=== PATIENT | female | born 1990 | race African-American/Black ===

== ENCOUNTER 2017-01-10 16:30 | Emergency (ER) | payer OTHER ==
[2017-01-10 16:36] VITALS: BP 124/58; PULSE 100; TEMP 98; BMI 20.9
--- NOTE | 2017-01-10 17:34 | PDOC ---
History of Present Illness - General Chief Complaint: Pain Stated Complaint: PAIN Time Seen by Provider: 01/10/17 16:47 - History of Present Illness Initial Comments: 01/10/17 17:43 Ms. Forrest is a 26 year old female with a significant past medical history of prior GERD diagnosis who presents to the emergency department with a one week history of "migrating pains" in her sternum, left kidney area, and stomach. She says that pain is 10/10 when it comes and is crampy. She denies any relation to food, but says that she has not had an appetite lately and has lost 10 pounds. She has not had a bowel movement in 2 days either. The patient denies chest pain, shortness of breath, headache and dizziness. Denies fever, chills, nausea, vomit, and diarrhea. Denies dysuria, frequency, urgency and hematuria. Allergies: Cats, dust Past surgical history:None Social history: Social EtOH PMD - Peggy Lorenzo Past History - Past Medical History Allergies/Adverse Reactions: Allergies Allergy/AdvReac Type Severity Reaction Status Date / Time No Known Allergies Allergy Verified 01/10/17 16:36 Home Medications: Ambulatory Orders NK [No Known Home Medication] 01/10/17 - Psycho/Social/Smoking Cessation Hx Anxiety: No Suicidal Ideation: No Smoking Status: No Smoking History: Never smoked Number of Cigarettes Smoked Daily: 0 Information on smoking cessation initiated: No Review of Systems - Review of Systems Comments:: 01/10/17 17:45 GENERAL/CONSTITUTIONAL: No fever or chills. No weakness. HEAD, EYES, EARS, NOSE AND THROAT: No change in vision. No ear pain or discharge. No sore throat. CARDIOVASCULAR: +Pain to sternum in the past week. No shortness of breath RESPIRATORY: No cough, wheezing, or hemoptysis. GASTROINTESTINAL: +Pain to abdomen in past week. No nausea, vomiting, or diarrhea. GENITOURINARY: +Pain in area of L/R kidney in past week. No dysuria, frequency, or change in urination. MUSCULOSKELETAL: No joint or muscle swelling or pain. No neck or back pain. SKIN: No rash NEUROLOGIC: No headache, vertigo, loss of consciousness, or change in strength/ sensation. ENDOCRINE: +Recent 10 pound weight loss from lack of eating. No increased thirst. HEMATOLOGIC/LYMPHATIC: No anemia, easy bleeding, or history of blood clots. ALLERGIC/IMMUNOLOGIC: No hives or skin allergy. *Physical Exam - Vital Signs Last Vital Signs Temp Pulse Resp BP Pulse Ox 98 F 100 H 18 124/58 99 01/10/17 16:32 01/10/17 16:32 01/10/17 16:32 01/10/17 16:32 01/10/17 16:32 - Physical Exam Comments: 01/10/17 17:45 GENERAL: Awake, alert, and fully oriented, in no acute distress HEAD: No signs of trauma, normocephalic, atraumatic EYES: PERRLA, EOMI, sclera anicteric, conjunctiva clear ENT: Auricles normal inspection, hearing grossly normal, nares patent, oropharynx clear without exudates. Moist mucosa NECK: Normal ROM, supple, no lymphadenopathy, JVD, or masses LUNGS: No distress, speaks full sentences, clear to auscultation bilaterally HEART: Regular rate and rhythm, normal S1 and S2, no murmurs, rubs or gallops, peripheral pulses normal and equal bilaterally. ABDOMEN: Soft, nontender, normoactive bowel sounds. No guarding, no rebound. No masses EXTREMITIES: Normal inspection, Normal range of motion, no edema. No clubbing or cyanosis. NEUROLOGICAL: Cranial nerves II through XII grossly intact. Normal speech, normal gait, no focal sensorimotor deficits SKIN: Warm, Dry, normal turgor, no rashes or lesions noted. ED Treatment Course - LABORATORY CBC & Chemistry Diagram: 01/10/17 18:21 01/10/17 18:21 Medical Decision Making - Medical Decision Making 01/10/17 20:28 Ms. Forrest presents with non-specific pain that shows up in different locations at different times. Upreg and UA negative, CBC/CMP labs grossly normal. US showed possible calculi in R kidney, spiral CT ordered to confirm. Spiral CT showed no evidence of any pathology. Transvaginal US ordered to r/o ovarian cyst/torsion. 01/10/17 21:50 Transvaginal US negative accept for minimal free fluid. D/Cing to home for further investigating outpatient. *DC/Admit/Observation/Transfer Diagnosis at time of Disposition: Pain - Discharge Dispostion Disposition: HOME Condition at time of disposition: Stable - Referrals Referrals: Peggy Lorenzo MD [Primary Care Provider] - - Patient Instructions Printed Discharge Instructions: DI for Ovarian Cyst Additional Instructions: Please return if any increase in pain, fever, or other concerning symptoms. - Attestations Physician Attestion: 01/10/17 21:54 I, Dr. Chapo Medeiros, attest that this document has been prepared under my direction and personally reviewed by me in its entirety. I further attest, that it accurately reflects all work, treatment, procedures and medical decision -making performed by me.
[2017-01-10 19:13] LABS: BASOPHIL 1.2 % (0-2.0); EOSINOPHIL 7.3 % (0-4.5); MCH 28.5 pg (25.7-33.7); MCHC 32.4 g/dl (32.0-36.0); MEAN CELL VOLUME 87.9 fl (80-96); MEAN PLT VOLUME 9.9 fl (7.5-11.1); NEUTROPHILS 55.3 % (42.8-82.8); PLATELET COUNT 294 K/MM3 (134-434); RDW 15.8 % (11.6-15.6); WHITE BLOOD COUNT 8.7 K/mm3 (4.0-10.0)
[2017-01-10 19:15] LABS: URINE APPEARANCE CLEAR; URINE BILIRUBIN NEGATIVE (NEGATIVE); URINE BLOOD NEGATIVE (NEGATIVE); URINE COLOR STRAW; URINE GLUCOSE (UA) NEGATIVE (NEGATIVE); URINE KETONE NEGATIVE (NEGATIVE); URINE LEUK ESTERASE NEGATIVE (NEGATIVE); URINE NITRITE NEGATIVE (NEGATIVE); URINE PROTEIN NEGATIVE (NEGATIVE); URINE UROBILINOGEN NEGATIVE mg/dL (0.2-1.0)
[2017-01-10] MEDS ORDERED: ACETAMINOPHEN 325 MG TABLET (FP) PO ONE (19:22)
[2017-01-10] MEDS ORDERED: ACETAMINOPHEN 325 MG TABLET (FP) ONE (19:35)
[2017-01-10 19:50] LABS: ALBUMIN 3.9 g/dl (3.4-5.0); ANION GAP 5 (8-16); BILIRUBIN,TOTAL 0.4 mg/dL (0.2-1.0); CALCIUM 9.4 mg/dL (8.5-10.1); CO2 29 mmol/L (21-32); CREATININE 0.8 mg/dL (0.55-1.02); GLUCOSE,RANDOM 84 mg/dL (74-106); SGOT/AST 7 U/L (15-37); SGPT/ALT 13 U/L (12-78); TOT PROT 7.2 g/dl (6.4-8.2)
[2017-01-10 19:51] LABS: ALK PHOS 55 U/L (45-117)
[2017-01-10] MEDS ORDERED: KETOROLAC TROMETHAMINE 15 MG/ML VIAL IM ONE (21:10)
[2017-01-10] MEDS ORDERED: KETOROLAC TROMETHAMINE 15 MG/ML VIAL ONE (21:13)
== END 2017-01-10 22:10 | disposition home or self-care (01) ==
LOC: JER 16:30
PROC: 3E0233Z Introduction of Anti-inflammatory into Muscle, Percutaneous Approach (ICD-10-PCS; principal; 2017-01-10)
DX: R10.9 Unspecified abdominal pain (principal); K21.9 Gastro-esophageal reflux disease without esophagitis
CPT/HCPCS: 36415; 74176; 76830-TC; 80053; 81003; 84703; 85025; 96372; 99283-25

== ENCOUNTER 2019-02-07 11:27 | Inpatient (IN) | payer OTHER ==
[2019-02-07] MEDS ORDERED: BUTORPHANOL TARTRATE 1 MG/ML VIAL IVPB ONE (11:51)
[2019-02-07] MEDS ORDERED: PROMETHAZINE HCL 25 MG/1 ML VIAL IVPUSH ONE (11:51)
--- NOTE | 2019-02-07 12:01 | HP ---
Past Medical History - Admission Chief Complaint: here for labor induction History of Present Illness: 28 y/o P0 female with SIUP at 41 weeks, here for IOL. uncomplicated. GBS positive, quad screen negative. EFW 6lb on 01/12/19. Cervix 2-3 cm dilated in office, sent over for pitocin induction. History Source: Patient, Medical Record Limitations to Obtaining History: No Limitations - Past Medical History Cardiovascular: No: HTN Pulmonary: No: COPD Hepatobiliary: No: Hepatitis B, Hepatitis C Renal/: No: UTI Reproductive: No: Fibroids, PID Heme/Onc: No: Anemia Infectious Disease: No: HIV, MRSA, STD's Psych: No: Anxiety, Bipolar, Depression - Past Surgical History Hx Myomectomy: No Hx Transabdominal Cerclage: No - Smoking History Smoking history: Never smoked Aproximately how many cigarettes per day: 0 - Social History ADL: Independent History of Recent Travel: No Home Medications - Allergies Allergies/Adverse Reactions: Allergies Allergy/AdvReac Type Severity Reaction Status Date / Time No Known Allergies Allergy Verified 01/29/19 17:28 - Home Medications Home Medications: Ambulatory Orders Ferrous Sulfate [Iron] 1 tab PO DAILY 01/29/19 Pnv No.95/Ferrous Fum/Folic AC [ Formula] 1 each PO DAILY 01/29/19 Review of Systems - Review of Systems Constitutional: reports: No Symptoms Eyes: reports: No Symptoms HENT: reports: No Symptoms Neck: reports: No Symptoms Cardiovascular: reports: No Symptoms Respiratory: reports: No Symptoms Gastrointestinal: reports: No Symptoms Genitourinary: reports: No Symptoms Breasts: reports: No Symptoms Reported Musculoskeletal: reports: No Symptoms Integumentary: reports: No Symptoms Neurological: reports: No Symptoms Endocrine: reports: No Symptoms Hematology/Lymphatic: reports: No Symptoms Psychiatric: reports: No Symptoms Physical Exam - Maternity Constitutional: Yes: Well Nourished, No Distress, Calm Eyes: Yes: EOM Intact HENT: Yes: Atraumatic Neck: Yes: Supple Cardiovascular: Yes: Regular Rate and Rhythm Lungs: Clear to auscultation Breast(s): Yes: WNL - Abdominal Exam/OB Fundal Height: 40 Number of Fetuses: Single Presentation: Vertex Contractions: Yes Regularity: Irregular Intensity: Unaware Monitor Mode: External Heart Rate (range): 145 Category: I Accelerations: Uniform Decelerations: None - Vaginal Exam/OB Dilatation (cm): 2.5 Amniotic Membrane Status: Intact (exam per Dr. Kim in office) Presentation: Vertex/Position - Physical Exam Psychiatric: Yes: Alert, Oriented Hemorrhage Risk Assessment - Risk Factors Medium Risk Factors: Yes: None High Risk Factors: Yes: None Risk Score: 1 Risk Level: Medium Risk Problem List - Problems (1) Post-dates Code(s): O48.0 - POST-TERM (2) GBS (group B Streptococcus carrier), +RV culture, currently Code(s): O99.820 - STREPTOCOCCUS B CARRIER STATE COMPLICATING Assessment/Plan 28 y/o P0 female with SIUP at 41 weeks here for induction of labor cervix 2.5 cm dilated in office plan for pitocin GBS positive, for ampicillin once ROM or in active labor analgesia prn
[2019-02-07] MEDS: ELECTROLYTE-148 SOLN 1,000 ML IV SCH ×2 (12:15→18:31)
[2019-02-07] MEDS ORDERED: AMPICILLIN - 2 GM in SODIUM CHLORIDE 100 ML IVPB ONE (12:17)
[2019-02-07] MEDS ORDERED: OXYTOCIN 30 UNITS in 0.9% NS 30 UNIT/500 ML INFUS.BAG IVPB SCH (12:30)
[2019-02-07 13:02] LABS: BASO % 0.4 % (0-2.0); EOS % 4.6 % (0-4.5); HEMATOCRIT 37.5 % (32.4-45.2); HEMOGLOBIN 12.3 GM/dL (10.7-15.3); LYMPH % 15.6 % (8-40); MCH 29.9 pg (25.7-33.7); MCHC 32.7 g/dl (32.0-36.0); MEAN CELL VOLUME 91.3 fl (80-96); MEAN PLT VOLUME 9.5 fl (7.5-11.1); MONO % 7.1 % (3.8-10.2); NEUT % 72.3 % (42.8-82.8); PLATELET COUNT 173 K/MM3 (134-434); RDW 14.2 % (11.6-15.6); WHITE BLOOD COUNT 8.6 K/mm3 (4.0-10.0)
[2019-02-07] MEDS ORDERED: OXYTOCIN 30 UNITS in 0.9% NS 30 UNIT/500 ML INFUS.BAG IVPB ONE (13:03)
[2019-02-07 13:17] LABS: INR 0.87 (0.83-1.09); PROTHROMBIN TIME (PATIENT) 10.2 SEC (9.7-13.0)
[2019-02-07 13:20] LABS: ACTIVATED PTT 25.9 SECONDS (25.2-36.5)
[2019-02-07 13:31] LABS: CALCIUM 8.8 mg/dL (8.5-10.1); CREATININE 0.5 mg/dL (0.55-1.3)
[2019-02-07 13:36] VITALS: BMI 27.5
[2019-02-07] MEDS: AMPICILLIN - 1 GM in SODIUM CHLORIDE 100 ML IVPB SCH ×2 (16:56→20:30)
[2019-02-07] MEDS ORDERED: AMPICILLIN SODIUM 2 GM VIAL ONE (20:38)
[2019-02-07] MEDS ORDERED: FENTANYL/BUPIVACAINE/NS/PF - PCEA - 50 ML DISP.SYRIN EP ONE (20:38)
[2019-02-07] MEDS ORDERED: LIDO 2%/EPI 1:200000 PRESRVFRE (20 ML SDVIAL) ONE (20:42)
[2019-02-07] MEDS ORDERED: BUPIVACAINE HCL/PF 2.5 MG/ML - 30 ML VIAL IJ ONE (20:42)
[2019-02-07] MEDS ORDERED: NALOXONE HCL 0.4 MG/ML VIAL IVPUSH PRN (21:03)
[2019-02-07] MEDS ORDERED: FENTANYL/BUPIVACAINE/NS/PF - PCEA - 50 ML DISP.SYRIN EP SCH (21:15)
--- NOTE | 2019-02-07 21:54 | PN ---
Ante-Partal Exam - Subjective Subjective: pt feeling pain with contractions Vital Signs: Vital Signs Temperature 97.9 F 02/07/19 18:00 Pulse Rate 65 02/07/19 19:49 Respiratory Rate 20 02/07/19 19:49 Blood Pressure 113/57 L 02/07/19 19:49 O2 Sat by Pulse Oximetry (%) Bleeding: No Headache: No Visual changes: No Right upper quadrant pain: No Pain (scale 1-10): 8 - Contractions Contractions: Yes Regularity: Regular Intensity: Mod/Strong - Exam during Labor Heart Rate: 140 Variability: Moderate Category: I Monitor Accelerations: Present Monitor Decelerations: None Exam: Vaginal Dilatation (cm): 5 Effacement (%): 90 Amniotic Membrane Status: Intact Presentation: Vertex Station: -1 - Assessment/Plan Assessment/Plan: 28 y/o with SIUP at 41.2 weeks IOL for late term continue pitocin desires epidural continue active management
[2019-02-07] MEDS ORDERED: OXYTOCIN 20 UNITS in 0.9% NS 20 UNIT/1,000 ML INFUS.BAG IV ONE (22:25)
[2019-02-08] MEDS ORDERED: AMPICILLIN SODIUM 1 GM VIAL ONE (00:07)
[2019-02-08] MEDS: AMPICILLIN - 1 GM in SODIUM CHLORIDE 100 ML IVPB SCH (00:40)
[2019-02-08] MEDS ORDERED: FENTANYL/BUPIVACAINE/NS/PF - PCEA - 50 ML DISP.SYRIN EP ONE (02:10)
--- NOTE | 2019-02-08 02:17 | PN ---
Ante-Partal Exam - Subjective Subjective: Came to evaluate patient for recurrent variable decelerations. Pt comfortable with epidural, feeling some pressure. Vital Signs: Vital Signs Temperature 98.3 F 02/08/19 01:01 Pulse Rate 73 02/08/19 00:30 Respiratory Rate 20 02/08/19 00:30 Blood Pressure 101/41 L 02/08/19 00:30 O2 Sat by Pulse Oximetry (%) 100 02/08/19 00:30 Bleeding: Yes Headache: No Visual changes: No Right upper quadrant pain: No - Contractions Contractions: Yes Regularity: Regular Intensity: Mod/Strong - Exam during Labor Heart Rate: 150 Variability: Moderate Category: II Monitor Accelerations: Absent Monitor Decelerations: Variable Exam: Vaginal Dilatation (cm): 9.5 Effacement (%): 100 Amniotic Membrane Status: Ruptured Presentation: Vertex Station: +1 - Assessment/Plan Assessment/Plan: Category 2 tracing making good progress to begin pushing soon
[2019-02-08] MEDS ORDERED: LIDOCAINE HCL 1% PRESERVATIVE FREE - 30ML VIAL ONE (03:25)
--- NOTE | 2019-02-08 03:44 | PN ---
Delivery - Delivery Vaginal Delivery: No Problems Type of Anesthesia: Local, Epidural Episiotomy/Laceration: 1st degree EBL (cc): 250 Delivery, Single - Stages of Labor Date of Delivery: 02/08/19 Time of Delivery: : Date Placenta Delivered: 02/08/19 Time Placenta Delivered: Placenta: Yes: Spontaneous - Condition of Senior Center Director/[facility] Shift Lead Present: Yes Name: Jose George Infant Gender: Male Position: Left, OA (head delivered XAVI, baby rotated after delivery of head, anterior shoudler was left shoulder) - 5 Minutes Total Score: 9 - [place] Feeding Plan Initial Plan: Elected not to breastfeed exclusively throughout hospitalization Remarks - Remarks Remarks: from XAVI position across 1st degree laceration baby head delivered, then after attempt at delivery of right arm, baby rotated, and left arm/shoulder was anterior which delivered without incident remainder of delivered with ease cord clamped and cut, baby taken to warmer to be assessed by neonatology staff Apgars 7/9 cord gasses collected placenta delivered in tact, with 3VC 1st degree laceration repaired with 2-0 chromic after injection with 1% lidocaine (8cc) sponge and needle count correct after delivery baby to well baby nursery at this time
[2019-02-08] MEDS ORDERED: WITCH HAZEL 50% (TUCKS) 40 PAD/JAR PAD TP PRN (03:48)
[2019-02-08] MEDS ORDERED: BISACODYL 10 MG SUPP.RECT RC PRN (03:48)
[2019-02-08] MEDS ORDERED: METHYLERGONOVINE MALEATE 0.2 MG/1 ML AMP IM PRN (03:48)
[2019-02-08] MEDS ORDERED: BENZOCAINE 20% 57 GM BOTTLE TP PRN (03:48)
[2019-02-08] MEDS ORDERED: BENZOCAINE 28 GM HEMORRHOIDAL OINTMENT TP PRN (03:48)
[2019-02-08] MEDS ORDERED: OXYTOCIN 20 UNITS in 0.9% NS 20 UNIT/1,000 ML INFUS.BAG IV SCH (04:00)
[2019-02-08] MEDS: ACETAMINOPHEN 325 MG TABLET (FP) PO PRN ×2 (10:12→20:18)
[2019-02-08] MEDS: PRENATAL VITAMINS W/ FOLIC ACID TABLET (FP) PO SCH (10:12)
[2019-02-08] MEDS: IBUPROFEN 600 MG TABLET (FP) PO PRN ×2 (10:13→20:18)
[2019-02-09] MEDS: IBUPROFEN 600 MG TABLET (FP) PO PRN ×3 (00:12→22:18)
[2019-02-09] MEDS: ACETAMINOPHEN 325 MG TABLET (FP) PO PRN ×3 (00:14→22:18)
[2019-02-09 08:31] LABS: BASO % 0.2 % (0-2.0); EOS % 4.2 % (0-4.5); HEMATOCRIT 31.6 % (32.4-45.2); HEMOGLOBIN 10.4 GM/dL (10.7-15.3); LYMPH % 24.2 % (8-40); MCH 30.2 pg (25.7-33.7); MEAN CELL VOLUME 91.5 fl (80-96); MEAN PLT VOLUME 9.9 fl (7.5-11.1); MONO % 7.2 % (3.8-10.2); NEUT % 64.2 % (42.8-82.8); PLATELET COUNT 150 K/MM3 (134-434); RBC 3.45 M/mm3 (3.60-5.2); WHITE BLOOD COUNT 10.6 K/mm3 (4.0-10.0)
[2019-02-09] MEDS: PRENATAL VITAMINS W/ FOLIC ACID TABLET (FP) PO SCH (09:20)
[2019-02-09] MEDS ORDERED: SENNOSIDES/DOCUSATE COMBO (SENNA PLUS) TABLET (UD) PO PRN (22:00)
[2019-02-10 08:29] VITALS: BP 124/70; PULSE 78; TEMP 98.4
[2019-02-10] MEDS: PRENATAL VITAMINS W/ FOLIC ACID TABLET (FP) PO SCH (09:10)
--- NOTE | 2019-02-10 09:45 | DS ---
Physical Exam-SENIOR MARKETING MANAGER Vital Signs: Vital Signs Temperature 98.4 F 02/10/19 07:30 Pulse Rate 78 02/10/19 07:30 Respiratory Rate 18 02/10/19 07:30 Blood Pressure 124/70 02/10/19 07:30 O2 Sat by Pulse Oximetry (%) 98 02/08/19 04:30 Constitutional: Yes: Well Nourished, No Distress Neck: Yes: WNL Gastrointestinal: Yes: WNL, Soft ....Post : Yes: Uterus firm, Uterus non-tender Musculoskeletal: Yes: WNL Extremities: Yes: WNL Edema: No Labs: CBC, BMP 02/09/19 07:30 02/07/19 12:50 Delivery - Delivery Vaginal Delivery: No Problems Type of Anesthesia: Epidural Episiotomy/Laceration: Vaginal Extension/lac, 1st degree EBL (cc): 250 Delivery, Single - Stages of Labor Date 1st Stage Initiatied: 02/07/19 Time 1st Stage Initiated: 21:00 Date 2nd Stage Initiated: 02/08/19 Time 2nd Stage Initiated: 02:45 Date of Delivery: 02/08/19 Time of Delivery: 03:20 Time Placenta Delivered: 03:23 Placenta: Yes: Spontaneous - 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: Yes Name: Jose George Gender: Male Weight: 6 lb 13 oz Position: Left, OA Total Hours ROM (Hrs/Mins): 2H53m - 5 Minutes Total Score: 9 1 Minute Total Score: 7 - [place] Feeding Plan Initial Plan: Elected not to breastfeed exclusively throughout hospitalization Discharge Summary Reason For Visit: LABOR ADMISSION Current Active Problems GBS (group B Streptococcus carrier), +RV culture, currently (Acute) Post-dates (Acute) Procedures: Principal: Normal vaginal delivery Condition: Good - Instructions Disposition: HOME - Home Medications Comprehensive Discharge Medication List: Ambulatory Orders Ferrous Sulfate [Iron] 1 tab PO DAILY 01/29/19 Pnv No.95/Ferrous Fum/Folic AC [ Formula] 1 each PO DAILY 01/29/19 Ibuprofen [Motrin -] 600 mg PO QID #28 tablet 02/10/19
[2019-02-10] MEDS: IBUPROFEN 600 MG TABLET (FP) PO PRN (09:46)
[2019-02-10] MEDS: ACETAMINOPHEN 325 MG TABLET (FP) PO PRN (09:47)
== END 2019-02-10 14:25 | disposition home or self-care (01) | DRG 560 ==
LOC: JLDR 11:27 → J3W 02-08 05:14
PROVIDERS: ADMIT Obstetrics & Gynecology; ATTEND Obstetrics & Gynecology
PROC: 10E0XZZ Delivery of Products of Conception, External Approach (ICD-10-PCS; principal; 2019-02-08)
PROC: 0W8NXZZ Division of Female Perineum, External Approach (ICD-10-PCS; 2019-02-08)
PROC: 0HQ9XZZ Repair Perineum Skin, External Approach (ICD-10-PCS; 2019-02-08)
DX: O70.0 First degree perineal laceration during delivery (principal); O48.0 Post-term pregnancy; Z3A.41 41 weeks gestation of pregnancy; Z22.330 Carrier of Group B streptococcus; Z37.0 Single live birth
CPT/HCPCS: 36415; 36600; 59409; 80048; 82803; 85025; 85610; 85730; 86593; 86850; 86900; 86901